=== PATIENT | female | born 1960 | race Caucasian/White ===

== ENCOUNTER 2019-11-02 12:30 | Outpatient (CLI) | payer BC ==
--- NOTE | 2019-11-02 13:20 | BD ---
EXAM: Bone densitometry using DEXA HISTORY: 59 yo female. Screening for postmenopausal osteoporosis FINDINGS: L1--bone mineral density 1.020 g/sq cm; T score 0.3 ; Z score 1.5 L2--bone mineral density 1.091 g/sq cm; T score 0.6 ; Z score 2.0 L3--bone mineral density 1.125 g/sq cm; T score 0.4 ; Z score 1.8 L4--bone mineral density 1.071 g/sq cm; T score 0.1 ; Z score 1.6 Total L1-L4--bone mineral density 1.077 g/sq cm; T score 0.3 ; Z score 1.7 Left femoral neck--bone mineral density0.893; T score 0.4 ; Z score 1.7 Total proximal left femur--bone mineral density 1.127; T score 1.5 ; Z score 2.5 IMPRESSION: Normal BMD
--- NOTE | 2019-11-20 10:49 | MMO ---
Bilateral MAMMO Bilat Screen [facility]. CLINICAL HISTORY: Patient is 59 years old and is seen for screening. The patient has no family history of breast cancer. The patient has no personal history of cancer. The patient has a history of right needle biopsy at age 21 - benign. VIEWS: The views performed were: bilateral craniocaudal with tomosynthesis and bilateral mediolateral oblique with tomosynthesis. FILMS COMPARED: The present examination has been compared to a prior imaging study performed at [facility] on 01/30/2017. This study has been interpreted with the assistance of computer-aided detection. MAMMOGRAM FINDINGS: There are scattered fibroglandular densities. There are no suspicious masses, suspicious calcifications, or new areas of architectural distortion. IMPRESSION: THERE IS NO MAMMOGRAPHIC EVIDENCE OF MALIGNANCY. A ROUTINE FOLLOW-UP MAMMOGRAM IN 1 YEAR IS RECOMMENDED. THE RESULTS OF THIS EXAM WERE SENT TO THE PATIENT. ACR BI-RADS Category 1 - Negative MAMMOGRAPHY NOTE: 1. A negative mammogram report should not delay a biopsy if a dominant of clinically suspicious mass is present. 2. Approximately 10% to 15% of breast cancers are not detected by mammography. 3. Adenosis and dense breasts may obscure an underlying neoplasm. Reported by: EVELIN MAYORGA MD Electonically Signed: [id number]
== END 2019-11-02 12:31 | disposition home or self-care (01) ==
LOC: BICMAMMO 12:30
PROVIDERS: ATTEND Family Medicine
DX: Z12.31 Encounter for screening mammogram for malignant neoplasm of breast (principal); Z13.820 Encounter for screening for osteoporosis; Z78.0 Asymptomatic menopausal state; Z91.89 Other specified personal risk factors, not elsewhere classified
CPT/HCPCS: 77063; 77067; 77080

== ENCOUNTER 2019-11-17 07:37 | Outpatient (CLI) | payer BC ==
--- NOTE | 2019-11-17 08:38 | ULT ---
TRANSABDOMINAL AND TRANSVAGINAL PELVIC ULTRASOUND : HISTORY:Right adnexal fullness FINDINGS: Uterus: 5.6 x 4.5 x 3.2 cmcm Endometrium: 3 mm in thickness The ovaries are not visualized. No uterine mass or endometrial fluid is seen. No adnexal mass or free fluid in the cul-de-sac is identified. IMPRESSION: Nonvisualization of the ovaries, otherwise unremarkable exam
== END 2019-11-17 07:38 | disposition home or self-care (01) ==
LOC: BICULT 07:37
DX: N83.8 Other noninflammatory disorders of ovary, fallopian tube and broad ligament (principal)
CPT/HCPCS: 76856

== ENCOUNTER 2021-03-27 15:50 | Outpatient (CLI) | payer BC ==
[2021-03-27 17:44] LABS: #Basophils 0.1 10x3/uL (0.0-0.2); #Eosinphils 0.2 10x3/uL (0.0-0.5); #Monocytes 0.8 10x3/uL (0.0-1.1); #Neutrophils 6.4 10x3/uL (1.5-8.4); %Basophils 0.5 % (0.0-2.0); %Eosinophils 1.7 % (0.0-6.0); %Lymphocytes 21.2 % (18.0-47.0); %Monocytes 8.2 % (0.0-10.0); %Neutrophils 68.1 % (40.0-75.0); Hemoglobin 13.3 g/dL (12.0-15.5); Mean Corpuscular HGB CONC 33.3 g/dL (32.0-36.0); Mean Corpuscular Hemoglobin 28.1 pg (27.0-33.0); Mean Corpuscular Volume 84.6 fl (81.6-98.3); Mean Platelet Volume 10.6 fl (7.4-10.4); Platelet Count 236 10x3/uL (150-450); Red Blood Cell (RBC) Count 4.73 10x6/uL (3.90-5.03); White Blood Cell (WBC) Count 9.4 10x3/uL (3.5-10.5)
[2021-03-27 17:50] LABS: ALT (SGPT) 20 U/L (8-55); AST (SGOT) 21 U/L (5-34); Albumin 4.5 g/dL (3.4-4.8); Alkaline Phosphatase 83 U/L (40-110); Anion Gap 15 mmol/L (10-20); BUN (Urea Nitrogen) 22 mg/dL (9.8-20.1); Bilirubin, Total 0.3 mg/dL (0.2-1.2); Calc. Creatinine Clearance 0 mL/min (70-130); Calcium 9.2 mg/dL (7.8-10.44); Carbon Dioxide 23 mmol/L (23-31); Chloride 105 mmol/L (98-107); Glucose 92 mg/dL (80-115); Potassium 4.6 mmol/L (3.5-5.1); Protein, Total 7.5 g/dL (5.8-8.1); Sodium 138 mmol/L (136-145)
[2021-03-28 12:45] LABS: Hemoglobin A1c 5.5 % (4.0-6.0)
[2021-03-28 18:37] LABS: SARS-CoV-2 PCR by NAA Not Detected (NotDetected)
== END 2021-03-27 15:51 | disposition home or self-care (01) ==
LOC: LABBT 15:50
PROVIDERS: ATTEND Surgery
DX: Z01.818 Encounter for other preprocedural examination (principal); E66.01 Morbid (severe) obesity due to excess calories; Z20.822 Contact with and (suspected) exposure to COVID-19
CPT/HCPCS: 71046; 80053; 83036; 85025; U0003; U0005

== ENCOUNTER 2021-03-27 16:15 | Inpatient (IN) | payer BC ==
[2021-03-30] MEDS ORDERED: SUGAMMADEX SODIUM 200 MG/2 ML VIAL ONE (07:12)
[2021-03-30] MEDS ORDERED: Fentanyl 250 MCG/5 ML VIAL ONE (07:12)
[2021-03-30] MEDS ORDERED: Bupivacaine 0.25% HCL 30 ML VIAL ONE (07:40)
[2021-03-30] MEDS ORDERED: EPINEPHrine 1 MG/ML AMP ONE (07:40)
[2021-03-30] MEDS ORDERED: ceFAZolin 2 GM/Dextrose 50 ML IVPB ONE (07:56)
[2021-03-30] MEDS ORDERED: Propofol 1,000 MG/100 ML VIAL IV ONE (08:18)
[2021-03-30] MEDS ORDERED: Milrinone 10 MG/10 ML VIAL ONE (08:18)
[2021-03-30] MEDS ORDERED: Lidocaine 1% PF 5 ML VIAL ONE (08:26)
[2021-03-30] MEDS ORDERED: Ketorolac Tromethamine 30 MG/ML VIAL ONE (08:26)
[2021-03-30] MEDS ORDERED: Dexamethasone 20 MG/5 ML VIAL ONE (08:26)
[2021-03-30] MEDS ORDERED: Ondansetron PF 4 MG/2 ML Vial ONE (08:26)
[2021-03-30] MEDS ORDERED: PROPOFOL 200 MG/20 ML VIAL ONE (08:26)
[2021-03-30] MEDS ORDERED: Rocuronium Bromide 10 MG/ML (10ML VIAL) ONE (08:26)
[2021-03-30] MEDS ORDERED: Dextrose 5% in Water 1,000 ML IV PRN (10:59)
[2021-03-30] MEDS ORDERED: Hydrocodone-Acetamin 15 ML UDCUP PO PRN (10:59)
[2021-03-30] MEDS ORDERED: diphenhydrAMINE 50 MG/ML VIAL IVP PRN ×2 (10:59→11:50)
[2021-03-30] MEDS ORDERED: Ondansetron PF 4 MG/2 ML Vial IVP PRN (10:59)
[2021-03-30] MEDS ORDERED: hydrALAZINE 20 MG/ML VIAL SLOW IVP PRN (10:59)
[2021-03-30] MEDS ORDERED: Promethazine HCl 25 MG/ML VIAL IM PRN ×2 (10:59→11:50)
[2021-03-30] MEDS ORDERED: Dextrose 50% Abboject 50 ML SYRINGE SLOW IVP PRN (10:59)
[2021-03-30] MEDS ORDERED: Fentanyl 100 MCG/2 ML VIAL ONE ×2 (11:13→12:39)
[2021-03-30] MEDS ORDERED: Promethazine HCl 25 MG/ML VIAL ONE (11:18)
[2021-03-30] MEDS ORDERED: diphenhydrAMINE 50 MG/ML VIAL IM PRN (11:50)
[2021-03-30] MEDS ORDERED: diphenhydrAMINE 25 MG CAP PO PRN (11:50)
[2021-03-30] MEDS ORDERED: Naloxone HCl 0.4 mg/ml Vial IV PRN (11:50)
[2021-03-30] MEDS ORDERED: HYDROmorphone 10 mg/100 ml CADD IVPB PRN (11:50)
[2021-03-30] MEDS ORDERED: PCA Communication Order-Pharmacy FS SCH (12:00)
[2021-03-30] MEDS: Ondansetron PF 4 MG/2 ML Vial IVP PRN (14:19)
[2021-03-30] MEDS: D5 1/2 NS w/20 mEq KCL 1,000 ML IV SCH ×2 (14:19→21:53)
[2021-03-30 14:27] VITALS: BMI 42.7
[2021-03-31] MEDS: D5 1/2 NS w/20 mEq KCL 1,000 ML IV SCH ×2 (05:54→12:19)
[2021-03-31] MEDS: Ondansetron PF 4 MG/2 ML Vial IVP PRN (06:02)
[2021-03-31 08:23] LABS: #Eosinphils 0.1 thou/uL (0.0-0.7); #Lymphocytes 1.7 thou/uL (1.20-3.40); #Monocytes 1.1 thou/uL (0.11-0.59); #Neutrophils 6.6 thou/uL (1.40-6.50); %Basophils 0.2 % (0.0-1.0); %Eosinophils 0.7 % (0.0-10.0); %Lymphocytes 17.8 % (21.0-51.0); %Monocytes 11.2 % (0.0-10.0); %Neutrophils 70.2 % (42.0-75.0); Hemoglobin 11.5 g/dL (12.0-16.0); Mean Corpuscular HGB CONC 32.5 g/dL (32.0-36.0); Mean Corpuscular Hemoglobin 28.6 pg (27.0-31.0); Mean Corpuscular Volume 87.8 fL (78.0-98.0); Mean Platelet Volume 7.8 fL (7.4-10.4); Platelet Count 188 thou/uL (130-400); Red Blood Cell (RBC) Count 4.02 mill/uL (4.20-5.40); White Blood Cell (WBC) Count 9.4 thou/uL (4.8-10.8)
[2021-03-31 08:40] LABS: Anion Gap 12 mmol/L (10-20); BUN (Urea Nitrogen) 6 mg/dL (9.8-20.1); Calc. Creatinine Clearance 133 mL/min (70-130); Calcium 8.4 mg/dL (7.8-10.44); Carbon Dioxide 24 mmol/L (23-31); Chloride 105 mmol/L (98-107); Glucose 133 mg/dL (80-115); Potassium 4.1 mmol/L (3.5-5.1); Sodium 137 mmol/L (136-145)
[2021-03-31] MEDS ORDERED: Pantoprazole 40 MG VIAL IVP SCH (09:00)
[2021-03-31] MEDS ORDERED: Enoxaparin Sodium 40 MG/0.4 ML SYRINGE SC SCH (09:00)
[2021-03-31] MEDS ORDERED: Hydrocodone-Acetamin 15 ML UDCUP PO PRN (09:27)
[2021-03-31 12:52] VITALS: BP 108/64; TEMP 98.1
== END 2021-03-31 14:29 | disposition home or self-care (01) | DRG 621 ==
LOC: SURG A 03-30 07:32
PROVIDERS: ADMIT Surgery; ATTEND Surgery
PROC: 0D160ZA Bypass Stomach to Jejunum, Open Approach (ICD-10-PCS; principal; 2021-03-30)
DX: E66.01 Morbid (severe) obesity due to excess calories (principal); Z68.41 Body mass index [BMI] 40.0-44.9, adult; Z20.822 Contact with and (suspected) exposure to COVID-19; K21.9 Gastro-esophageal reflux disease without esophagitis; K44.9 Diaphragmatic hernia without obstruction or gangrene; G47.30 Sleep apnea, unspecified; E03.9 Hypothyroidism, unspecified; F32.A Depression, unspecified; F41.9 Anxiety disorder, unspecified; Z79.899 Other long term (current) drug therapy
CPT/HCPCS: 36415; 71046; 80048; 80053; 83036; 85025; A4649; C1713; C9113; J0171; J0690; J1100; J1650; J1885; J2260; J2405; J2550; J2704; J3010; J3480; S0020; U0003; U0005